=== PATIENT | female | born 1935 | race Caucasian/White ===

== ENCOUNTER 2021-08-15 00:48 | Inpatient (IN) | payer MEDICARE ==
[~2021-08-15] VITALS: Ht 152.4 cm; Wt 47.2 kg
[2021-08-15 02:02] LABS: HEMOGLOBIN 9.4 gm/dl (12.3-15.3); RED BLOOD COUNT 3.12 M/UL (4.00-5.10); WHITE BLOOD COUNT 4.5 K/UL (4.5-11.0)
[2021-08-15] MEDS ORDERED: AMLODIPINE BESYL5 MG PO (05:18)
[2021-08-15] MEDS ORDERED: SYNTHROID100 MCG PO (05:19)
[2021-08-15] MEDS ORDERED: LISINOPRIL40 MG PO (05:19)
[2021-08-15] MEDS ORDERED: PROAIR HFA8.5 GM INH (05:19)
[2021-08-15] MEDS ORDERED: SERTRALINE HCL100 MG PO (05:19)
[2021-08-15] MEDS ORDERED: FLONASE 0.05% N16 GM (05:20)
[2021-08-15] MEDS ORDERED: SPIRIVA RESPIMAT4 GM INH (05:20)
[2021-08-15] MEDS ORDERED: SYMBICORT 16010.2 GM INH (05:20)
[2021-08-15] MEDS ORDERED: PRAVASTATIN SOD40 MG PO (05:20)
[2021-08-15 15:28] LABS: HEMOGLOBIN 8.3 gm/dl (12.3-15.3)
[2021-08-15 15:40] LABS: RED BLOOD COUNT 2.67 M/UL (4.00-5.10); WHITE BLOOD COUNT 9.7 K/UL (4.5-11.0)
[2021-08-16 04:26] LABS: RED BLOOD COUNT 2.11 M/UL (4.00-5.10); WHITE BLOOD COUNT 4.6 K/UL (4.5-11.0)
[2021-08-16 04:27] LABS: HEMOGLOBIN 6.6 gm/dl (12.3-15.3)
[2021-08-17 03:25] LABS: HEMOGLOBIN 8.5 gm/dl (12.3-15.3)
[2021-08-17 03:28] LABS: RED BLOOD COUNT 2.8 M/UL (4.00-5.10); WHITE BLOOD COUNT 7.5 K/UL (4.5-11.0)
[2021-08-18 04:16] LABS: HEMOGLOBIN 8.5 gm/dl (12.3-15.3); RED BLOOD COUNT 2.75 M/UL (4.00-5.10); WHITE BLOOD COUNT 6.3 K/UL (4.5-11.0)
--- NOTE | 2021-08-18 11:24 | NUR ---
patient up in chair with assistance from PT, appears to be comfortable.
[2021-08-19 07:20] LABS: HEMOGLOBIN 7.6 gm/dl (12.3-15.3); RED BLOOD COUNT 2.6 M/UL (4.00-5.10); WHITE BLOOD COUNT 6.4 K/UL (4.5-11.0)
[2021-08-19] MEDS ORDERED: ENOXAPARIN40 MG/0.4 SC (09:15)
[2021-08-19] MEDS ORDERED: FOLIC ACID 1 MG1 MG PO (09:15)
[2021-08-19] MEDS ORDERED: FERROUS SULFAT325 M2 PO (09:15)
[2021-08-19] MEDS ORDERED: TYLOPHEN500 MG PO (09:16)
--- NOTE | 2021-08-19 11:39 | NUR ---
report given to barry [id number]
== END 2021-08-19 20:34 | DRG 480 ==
LOC: ER1 00:48 → PROG CARE 02:52 → CDU 02:52 → M/S 02:52 → PROG CARE 04:51 → M/S 08-17 23:08
PROVIDERS: Internal Medicine; Orthopaedic Surgery; ADMIT Internal Medicine
PROC: 0QS706Z Reposition Left Upper Femur with Intramedullary Internal Fixation Device, Open Approach (ICD-10-PCS; principal; 2021-08-15 14:00)
PROC: 30233N1 Transfusion of Nonautologous Red Blood Cells into Peripheral Vein, Percutaneous Approach (ICD-10-PCS; 2021-08-16)
PROC: 5A0945A Assistance with Respiratory Ventilation, 24-96 Consecutive Hours, High Flow/Velocity Cannula (ICD-10-PCS; 2021-08-18)
DX: S72.002A Fracture of unspecified part of neck of left femur, initial encounter for closed fracture (principal); J96.21 Acute and chronic respiratory failure with hypoxia; Z20.822 Contact with and (suspected) exposure to COVID-19; D61.818 Other pancytopenia; D62 Acute posthemorrhagic anemia; N17.9 Acute kidney failure, unspecified; J44.9 Chronic obstructive pulmonary disease, unspecified; D69.6 Thrombocytopenia, unspecified; I95.9 Hypotension, unspecified; I10 Essential (primary) hypertension; E03.9 Hypothyroidism, unspecified; Z87.891 Personal history of nicotine dependence; Z82.3 Family history of stroke; Z90.49 Acquired absence of other specified parts of digestive tract; Z99.81 Dependence on supplemental oxygen
CPT/HCPCS: 36415; 36600; 71045; 72192; 73501; 73502; 73552; 76000; 76705; 80048; 80053; 82607; 82728; 82746; 82803; 82962; 83540; 83550; 83735; 85007; 85025; 85027; 85610; 85730; 86850; 86900; 86901; 86920; 93005; 94640; 94664; 94760; 96374; 96375; 97110; 97110-GP-CQ; 97116; 97161; 97165; 97530; 97530-GP-CQ; 99285; A6212; C1713; J0171; J0690; J1100; J1650; J2001; J2270; J2405; J2704; J2795; J3010; J7050; P9016; U0002